=== PATIENT | male | born 1970 | race Caucasian/White ===

== ENCOUNTER 2018-03-02 15:56 | Emergency (ER) | payer OTHER ==
[2018-03-02] MEDS ORDERED: SODIUM CHLORIDE 1,000 ML IV STA (16:04)
[2018-03-02 16:05] VITALS: BP 133/89; PULSE 86; TEMP 98.5; BMI 24.7
--- NOTE | 2018-03-02 16:05 | PDOC ---
Rapid Medical Evaluation Time Seen by Provider: 03/02/18 16:01 Medical Evaluation: Allergies Allergy/AdvReac Type Severity Reaction Status Date / Time No Known Allergies Allergy Verified 01/07/15 18:09 03/02/18 16:01 I have performed a brief in-person evaluation of this patient. The patient presents with a chief complaint of: upper abdominal pain with brown stools with blood streaks Pertinent physical exam findings: abd TTP epigastrum and LUQ I have ordered the following: labs, urine The patient will proceed to the ED for further evaluation. Discharge Disposition - Diagnosis Abdominal pain - Referrals Referrals: Jakob Al MD [Primary Care Provider] - - Patient Instructions - Post Discharge Activity
[2018-03-02 16:52] LABS: BASO % 0.7 % (0-2.0); EOS % 1.9 % (0-4.5); HEMATOCRIT 43.1 % (35.4-49); HEMOGLOBIN 15.2 GM/dL (11.7-16.9); LYMPH % 27.1 % (8-40); MCH 31.7 pg (25.7-33.7); MCHC 35.2 g/dl (32.0-35.9); MONO % 10.2 % (3.8-10.2); NEUT % 60.1 % (42.8-82.8); PLATELET COUNT 268 K/MM3 (134-434); RBC 4.79 M/mm3 (4.00-5.60); RDW 13.6 % (11.9-15.9); WHITE BLOOD COUNT 7.9 K/mm3 (4.0-10.0)
[2018-03-02 16:57] LABS: URINE APPEARANCE CLEAR; URINE BILIRUBIN NEGATIVE (<2.0 mg/dL); URINE COLOR LTYELLOW; URINE GLUCOSE (UA) NEGATIVE (NEGATIVE); URINE KETONE NEGATIVE (NEGATIVE); URINE LEUK ESTERASE NEGATIVE (NEGATIVE); URINE NITRITE NEGATIVE (NEGATIVE); URINE PROTEIN NEGATIVE (NEGATIVE); URINE UROBILINOGEN NEGATIVE mg/dL (0.2-1.0)
[2018-03-02 17:39] LABS: ALBUMIN 3.8 g/dl (3.4-5.0); ALK PHOS 105 U/L (45-117); ANION GAP 6 MMOL/L (8-16); BILIRUBIN,TOTAL 0.3 mg/dL (0.2-1); BLOOD UREA NITROGEN 23 mg/dL (7-18); CALCIUM 8.6 mg/dL (8.5-10.1); CHLORIDE 110 mmol/L (98-107); CO2 24 mmol/L (21-32); GLUCOSE,RANDOM 91 mg/dL (74-106); LIPASE 188 U/L (73-393); POTASSIUM 4.1 mmol/L (3.5-5.1); SGOT/AST 20 U/L (15-37); SGPT/ALT 28 U/L (13-61); SODIUM 140 mmol/L (136-145); TOT PROT 6.4 g/dl (6.4-8.2)
--- NOTE | 2018-03-02 18:26 | PDOC ---
History of Present Illness - General Chief Complaint: Pain Stated Complaint: Pain Time Seen by Provider: 03/02/18 16:01 History Source: Patient - History of Present Illness Timing/Duration: reports: intermittent Quality: reports: severe Abdominal Pain Onset Location: reports: LUQ, LLQ Past History - Past Medical History Allergies/Adverse Reactions: Allergies Allergy/AdvReac Type Severity Reaction Status Date / Time No Known Allergies Allergy Verified 03/02/18 16:05 Home Medications: Ambulatory Orders NK [No Known Home Medication] 03/02/18 COPD: No CHF: No DVT: No - Surgical History Appendectomy: Yes - Suicide/Smoking/Psychosocial Hx Smoking History: Current every day smoker Number of Cigarettes Smoked Daily: 3 Information on smoking cessation initiated: No Hx Alcohol Use: No Drug/Substance Use Hx: No Review of Systems - Review of Systems Constitutional: No: Chills, Fever, Unintentional Wgt. Loss Respiratory: No: Cough, Shortness of Breath Cardiac (ROS): No: Chest Pain ABD/GI: No: Blood Streaked Bowels, Constipated, Diarrhea, Nausea, Rectal Bleeding, Vomiting : No: Burning, Dysuria, Flank Pain, Hematuria, Testicular Mass, Testicular Swelling, Testicular Pain *Physical Exam - Vital Signs Last Vital Signs Temp Pulse Resp BP Pulse Ox 98.5 F 86 16 133/89 100 03/02/18 16:03 03/02/18 16:03 03/02/18 16:03 03/02/18 16:03 03/02/18 16:03 - Physical Exam General Appearance: Yes: Appropriately Dressed. No: Apparent Distress HEENT: positive: Normal Voice Neck: positive: Supple Respiratory/Chest: negative: Normal Breath Sounds Gastrointestinal/Abdominal: positive: Normal Bowel Sounds, Tender (to LLQ), Soft. negative: Pulsatile Mass, Distended, Guarding, Rebound Musculoskeletal: negative: CVA Tenderness Integumentary: positive: Dry, Warm Neurologic: positive: Fully Oriented, Alert, Normal Mood/Affect Moderate Sedation - Procedure Monitoring Vital Signs: Procedure Monitoring Vital Signs Temperature 98.5 F 03/02/18 16:03 Pulse Rate 86 03/02/18 16:03 Respiratory Rate 16 03/02/18 16:03 Blood Pressure 133/89 03/02/18 16:03 O2 Sat by Pulse Oximetry (%) 100 03/02/18 16:03 ED Treatment Course - LABORATORY CBC & Chemistry Diagram: 03/02/18 16:30 03/02/18 16:30 - ADDITIONAL ORDERS Additional order review: Laboratory Results 03/02/18 03/02/18 16:30 16:30 Sodium 140 Potassium 4.1 Chloride 110 H Carbon Dioxide 24 Anion Gap 6 L BUN 23 H Creatinine 1.0 Creat Clearance w eGFR > 60 Random Glucose 91 Calcium 8.6 Total Bilirubin 0.3 AST 20 ALT 28 Alkaline Phosphatase 105 Total Protein 6.4 Albumin 3.8 Lipase 188 Urine Color Ltyellow Urine Appearance Clear Urine pH 5.0 Ur Specific [place] 1.028 Urine Protein Negative Urine Glucose (UA) Negative Urine Ketones Negative Urine Blood Negative Urine Nitrite Negative Urine Bilirubin Negative Urine Urobilinogen Negative Ur Leukocyte Esterase Negative 03/02/18 16:30 RBC 4.79 MCV 90.0 MCHC 35.2 RDW 13.6 MPV 8.0 Neutrophils % 60.1 Lymphocytes % 27.1 Monocytes % 10.2 Eosinophils % 1.9 Basophils % 0.7 - Medications Given in the ED: ED Medications Discontinued Medications Generic Name Dose Route Start Last Admin Trade Name Freq PRN Reason Stop Dose Admin Sodium Chloride 1,000 mls @ 1,000 mls/hr 03/02/18 16:04 03/02/18 16:39 Normal Saline - IV 03/02/18 17:03 1,000 mls/hr ASDIR STA Administration Medical Decision Making - Medical Decision Making 03/02/18 18:24 48 yo M, no sig hx, here w/ LUQ/LLQ pain x 4-5 days, unable to describe, 10/10, intermittent w/ no change in BM, BRBPR, melena, n/v/f/c, No dysuria/hematuria. No h/o similar pain. States pain mild currently See exam R/o diverticulitis -pain control -labs -CT 03/02/18 19:00 Signed out to night team pending CT *DC/Admit/Observation/Transfer Diagnosis at time of Disposition: Abdominal pain - Referrals Referrals: Jakob Al MD [Primary Care Provider] - - Patient Instructions - Post Discharge Activity
[2018-03-02] MEDS ORDERED: KETOROLAC TROMETHAMINE 30 MG/1 ML VIAL IVPUSH ONE (18:27)
--- NOTE | 2018-03-02 18:33 | PDOC ---
*Physical Exam - Vital Signs Last Vital Signs Temp Pulse Resp BP Pulse Ox 98.5 F 86 16 133/89 100 03/02/18 16:03 03/02/18 16:03 03/02/18 16:03 03/02/18 16:03 03/02/18 16:03 ED Treatment Course - LABORATORY CBC & Chemistry Diagram: 03/02/18 16:30 03/02/18 16:30 - ADDITIONAL ORDERS Additional order review: Laboratory Results 03/02/18 03/02/18 16:30 16:30 Sodium 140 Potassium 4.1 Chloride 110 H Carbon Dioxide 24 Anion Gap 6 L BUN 23 H Creatinine 1.0 Creat Clearance w eGFR > 60 Random Glucose 91 Calcium 8.6 Total Bilirubin 0.3 AST 20 ALT 28 Alkaline Phosphatase 105 Total Protein 6.4 Albumin 3.8 Lipase 188 Urine Color Ltyellow Urine Appearance Clear Urine pH 5.0 Ur Specific [place] 1.028 Urine Protein Negative Urine Glucose (UA) Negative Urine Ketones Negative Urine Blood Negative Urine Nitrite Negative Urine Bilirubin Negative Urine Urobilinogen Negative Ur Leukocyte Esterase Negative 03/02/18 16:30 RBC 4.79 MCV 90.0 MCHC 35.2 RDW 13.6 MPV 8.0 Neutrophils % 60.1 Lymphocytes % 27.1 Monocytes % 10.2 Eosinophils % 1.9 Basophils % 0.7 - Medications Given in the ED: ED Medications Discontinued Medications Generic Name Dose Route Start Last Admin Trade Name Freq PRN Reason Stop Dose Admin Sodium Chloride 1,000 mls @ 1,000 mls/hr 03/02/18 16:04 03/02/18 16:39 Normal Saline - IV 03/02/18 17:03 1,000 mls/hr ASDIR STA Administration Medical Decision Making - Medical Decision Making 03/02/18 18:33 48 yo M presenting to the ER with a complaint of abdominal pain Labs sent CT pending Signed out to overnight team Pt seen by Midlevel Provider under my direct supervision Pt interviewed and examined Ancillary studies reviewed I agree with plan as outlined by Midlevel Provider *DC/Admit/Observation/Transfer Diagnosis at time of Disposition: Abdominal pain - Referrals Referrals: Jakob Al MD [Primary Care Provider] - - Patient Instructions - Post Discharge Activity
[2018-03-02] MEDS ORDERED: ACETAMINOPHEN 325 MG TABLET (FP) PO ONE (19:26)
--- NOTE | 2018-03-02 19:50 | PDOC ---
*Physical Exam - Vital Signs Last Vital Signs Temp Pulse Resp BP Pulse Ox 98.5 F 86 16 133/89 100 03/02/18 16:03 03/02/18 16:03 03/02/18 16:03 03/02/18 16:03 03/02/18 16:03 ED Treatment Course - LABORATORY CBC & Chemistry Diagram: 03/02/18 16:30 03/02/18 16:30 - ADDITIONAL ORDERS Additional order review: Laboratory Results 03/02/18 03/02/18 16:30 16:30 Sodium 140 Potassium 4.1 Chloride 110 H Carbon Dioxide 24 Anion Gap 6 L BUN 23 H Creatinine 1.0 Creat Clearance w eGFR > 60 Random Glucose 91 Calcium 8.6 Total Bilirubin 0.3 AST 20 ALT 28 Alkaline Phosphatase 105 Total Protein 6.4 Albumin 3.8 Lipase 188 Urine Color Ltyellow Urine Appearance Clear Urine pH 5.0 Ur Specific [place] 1.028 Urine Protein Negative Urine Glucose (UA) Negative Urine Ketones Negative Urine Blood Negative Urine Nitrite Negative Urine Bilirubin Negative Urine Urobilinogen Negative Ur Leukocyte Esterase Negative 03/02/18 16:30 RBC 4.79 MCV 90.0 MCHC 35.2 RDW 13.6 MPV 8.0 Neutrophils % 60.1 Lymphocytes % 27.1 Monocytes % 10.2 Eosinophils % 1.9 Basophils % 0.7 - Medications Given in the ED: ED Medications Discontinued Medications Generic Name Dose Route Start Last Admin Trade Name Freq PRN Reason Stop Dose Admin Sodium Chloride 1,000 mls @ 1,000 mls/hr 03/02/18 16:04 03/02/18 16:39 Normal Saline - IV 03/02/18 17:03 1,000 mls/hr ASDIR STA Administration Medical Decision Making - Medical Decision Making Patient signed out to me by BALTAZAR Santos Patient resting comfortably; mentions slight LLQ abdominal pain Patient pending CT A/P 03/02/18 19:49 CT A/P shows diverticulosis; no evidence of diverticulitis Findings explained to patient Stable for discharge 03/02/18 21:42 *DC/Admit/Observation/Transfer Diagnosis at time of Disposition: Diverticulosis Qualifiers: Diverticulosis site: diverticulosis of large intestine Diverticulosis bleeding : diverticulosis without bleeding Qualified Code(s): K57.30 - Diverticulosis of large intestine without perforation or abscess without bleeding - Discharge Dispostion Disposition: HOME Condition at time of disposition: Good Decision to Admit order: No - Referrals Referrals: Jakob Al MD [Primary Care Provider] - 3 days - Patient Instructions Printed Discharge Instructions: DI for Diverticulosis Additional Instructions: Thank you for choosing [facility]. It was a pleasure taking care of you. Your CT scan shows no infection of colon, but diverticulosis Encourage high fiber diet and increasing fiber intake. Follow-up with your PCP in 2-3 days. Return to the Emergency Department if your symptoms worsen or persist, you have fever, shortness of breath, chest pain, severe abdominal pain, vomiting, bloody diarrhea or other concerning symptoms. - Post Discharge Activity
[2018-03-02] MEDS ORDERED: KETOROLAC TROMETHAMINE 30 MG/1 ML VIAL ONE (21:05)
--- NOTE | 2018-03-03 16:20 | EKG ---
Test Reason : Blood Pressure : / mmHG Vent. Rate : 077 BPM Atrial Rate : 077 BPM P-R Int : 162 ms QRS Dur : 090 ms QT Int : 346 ms P-R-T Axes : 047 068 048 degrees QTc Int : 391 ms NORMAL SINUS RHYTHM NORMAL ECG NO PREVIOUS ECGS AVAILABLE Confirmed by ZHANG ARGUETA MD ([id number]) on 03/03/2018 4:19:53 PM Referred By: Confirmed By:ZHANG ARGUETA MD
== END 2018-03-02 21:52 | disposition home or self-care (01) ==
LOC: JER 15:56
PROC: 3E0333Z Introduction of Anti-inflammatory into Peripheral Vein, Percutaneous Approach (ICD-10-PCS; principal; 2018-03-02)
PROC: 3E0337Z Introduction of Electrolytic and Water Balance Substance into Peripheral Vein, Percutaneous Approach (ICD-10-PCS; 2018-03-02)
DX: R10.10 Upper abdominal pain, unspecified (principal)
CPT/HCPCS: 36415; 74177-TC; 80053; 81003; 83690; 85025; 93005; 93010; 99283-25; J7030